=== PATIENT | male | born 1970 | race Caucasian/White ===

== ENCOUNTER 2018-11-03 10:27 | Emergency (ER) | payer SELFPAY ==
[2018-11-03] MEDS ORDERED: Albuterol 0.083% Inhal Sol (2.5 mg/3 mL) UD IH STA ×3 (10:33→12:37)
[2018-11-03] MEDS ORDERED: Magnesium Sulfate 1 gm in D5W 1 GM/100 ML BAG IV ONE (10:34)
[2018-11-03 10:35] VITALS: TEMP 97.7; O2SAT 96
[2018-11-03 11:02] LABS: VENOUS BLOOD GAS PCO2 53 mmHg (40-60); VENOUS BLOOD GAS PO2 33 mm/Hg (30-55); VENOUS BLOOD PH 7.33 (7.32-7.43)
[2018-11-03] MEDS ORDERED: Magnesium Sulfate 1 gm in D5W 2 GM/200 ML BAG IVPB ONE (11:03)
[2018-11-03 11:05] LABS: BASO # 0.1 K/uL (0.0-0.2); BASO % 0.8 % (0.0-2.0); EOS # 1.3 K/uL (0.0-0.7); EOS % 10.3 % (0.0-4.0); HEMOGLOBIN 15.3 g/dL (12.0-18.0); LYMPH # 2.9 K/uL (1.0-4.3); LYMPH % 23.4 % (20.0-40.0); MEAN CELL VOLUME 90.9 fL (80.0-94.0); MEAN CORPUSCULAR HEMOGLOBIN 29.7 pg (27.0-31.0); MEAN CORPUSCULAR HGB CONC 32.7 g/dL (33.0-37.0); MEAN PLATELET VOLUME 7.4 fL (7.2-11.7); MONO # 0.7 K/uL (0.0-0.8); MONO % 5.7 % (0.0-10.0); NEUT # 7.4 K/uL (1.8-7.0); NEUT % 59.8 % (50.0-75.0); RBC 5.13 Mil/uL (4.40-5.90); RED CELL DISTRIBUTION WIDTH 12.8 % (11.5-14.5); WHITE BLOOD COUNT 12.4 K/uL (4.8-10.8)
--- NOTE | 2018-11-03 11:09 | RAD ---
Date of service: 11/03/2018 PROCEDURE: CHEST RADIOGRAPH, 1 VIEW HISTORY: SOB COMPARISON: None available. FINDINGS: LUNGS: Clear. PLEURA: No pneumothorax or pleural fluid seen. CARDIOVASCULAR: There is presence of aortic atherosclerotic calcification on x-ray. Normal. OSSEOUS STRUCTURES: Bilateral shoulder mild arthrosis VISUALIZED UPPER ABDOMEN: Normal. OTHER FINDINGS: None. IMPRESSION: No acute cardiopulmonary pathology appreciated.
[2018-11-03 11:30] LABS: ALB/GLOB RATIO 1.7 (1.0-2.1); ALBUMIN 4.8 g/dL (3.5-5.0); ALT/SGPT 31 U/L (21-72); AST/SGOT 40 U/L (17-59); BLOOD UREA NITROGEN 10 mg/dL (9-20); CALCIUM 9.1 mg/dl (8.6-10.4); GFR NON-AFRICAN AMERICAN > 60
[2018-11-03] MEDS ORDERED: Albuterol-Ipratrop 3 mg / 0.5 (3 ml) UD INH STA (11:37)
[2018-11-03 11:42] LABS: B-TYPE NATRIURETIC PEPTIDE 42.1 pg/mL (0-450)
[2018-11-03] MEDS ORDERED: Albuterol 0.083% Inhal Sol (2.5 mg/3 mL) UD ONE (12:30)
[2018-11-03] MEDS ORDERED: Albuterol-Ipratrop 3 mg / 0.5 (3 ml) UD ONE (12:30)
--- NOTE | 2018-11-03 13:39 | C.PDOC ---
History Of Present Illness 48 y/o male presents to the ED complaining of SOB since yesterday. Patient reports he was diagnosed with asthma after a bout of pneumonia in the fall. States he has had worsening SOB since yesterday morning. He tried taking nebulizers and using his pump at home with minimal relief. Otherwise he denies any fever, chills, chest pain, back pain, nausea, vomiting, numbness, or weakness. Time Seen by Provider: 11/03/18 10:32 Chief Complaint (Nursing): Shortness Of Breath History Per: Patient History/Exam Limitations: no limitations Onset/Duration Of Symptoms: Days (2) Current Symptoms Are (Timing): Still Present Current Respiratory Medications: See Home Med List Past Medical History Reviewed: Historical Data, Nursing Documentation, Vital Signs Vital Signs: Last Vital Signs Temp 97.7 F 11/03/18 10:31 Pulse 117 H 11/03/18 10:31 Resp 25 H 11/03/18 10:31 BP 137/73 11/03/18 10:31 Pulse Ox 96 11/03/18 10:36 - Medical History PMH: Asthma (after dx with pneumonia last 2018) Family History: States: Unknown Family Hx - Social History Hx Tobacco Use: No Hx Alcohol Use: No Hx Substance Use: No - Immunization History Hx Tetanus Toxoid Vaccination: No Hx Influenza Vaccination: No Hx Pneumococcal Vaccination: No Review Of Systems Constitutional: Negative for: Fever, Chills ENT: Negative for: Nose Discharge, Nose Congestion Cardiovascular: Negative for: Chest Pain Respiratory: Positive for: Shortness of Breath, Wheezing Gastrointestinal: Negative for: Vomiting, Abdominal Pain, Diarrhea Musculoskeletal: Negative for: Back Pain Skin: Negative for: Rash Neurological: Negative for: Weakness, Numbness, Dizziness Physical Exam - Physical Exam Appears: Non-toxic, Other (Audibly wheezing, speaking in short phrases) Skin: Warm, Dry, No Rash Head: Atraumatic, Normacephalic Eye(s): bilateral: Normal Inspection, PERRL, EOMI Neck: Normal ROM Chest: Symmetrical Cardiovascular: Rhythm Regular, No Murmur Respiratory: No Accessory Muscle Use, No Rhonchi, Wheezing (diffusely) Gastrointestinal/Abdominal: Soft, No Tenderness, No Distention Extremity: Bilateral: Atraumatic, Normal Color And Temperature Neurological/Psych: Oriented x3 ED Course And Treatment - Laboratory Results Result Diagrams: 11/03/18 11:01 11/03/18 11:01 Lab Results: pO2 33 mm/Hg (30-55) 11/03/18 10:58 VBG pH 7.33 (7.32-7.43) 11/03/18 10:58 VBG pCO2 53 mmHg (40-60) 11/03/18 10:58 VBG HCO3 24.6 mmol/L 11/03/18 10:58 VBG Total CO2 29.5 mmol/L (22-28) H 11/03/18 10:58 VBG O2 Sat (Calc) 68.2 % (40-65) H 11/03/18 10:58 VBG Base Excess 1.0 mmol/L (0.0-2.0) 11/03/18 10:58 VBG Potassium 3.8 mmol/L (3.6-5.2) 11/03/18 10:58 Sodium 139.0 mmol/l (132-148) 11/03/18 10:58 Chloride 105.0 mmol/L (98-107) 11/03/18 10:58 Glucose 132 mg/dl (75-110) H 11/03/18 10:58 Lactate 2.3 mmol/L (0.7-2.1) H 11/03/18 10:58 Troponin I < 0.0120 ng/mL (0.00-0.120) 11/03/18 11:01 NT-Pro-B Natriuret Pep 42.1 pg/mL (0-450) 11/03/18 11:01 Total Bilirubin 0.9 mg/dL (0.2-1.3) 11/03/18 11:01 AST 40 U/L (17-59) 11/03/18 11:01 ALT 31 U/L (21-72) 11/03/18 11:01 Alkaline Phosphatase 92 U/L (38-126) 11/03/18 11:01 Total Protein 7.7 g/dL (6.3-8.3) 11/03/18 11:01 Albumin 4.8 g/dL (3.5-5.0) 11/03/18 11:01 Globulin 2.8 gm/dL (2.2-3.9) 11/03/18 11:01 Albumin/Globulin Ratio 1.7 (1.0-2.1) 11/03/18 11:01 O2 Sat by Pulse Oximetry: 96 (RA) Pulse Ox Interpretation: Normal - Other Rad CXR X-Ray: Read By Radiologist Interpretation: Accession No. : [id number]. Patient Name / ID : SAROJ THAKKAR P / [id number]. Exam Date : 11/03/2018 10:37:51 ( Approved ). Study Comment : Sex / Age : M / 48Y. Creator : preston antoine. Dictator : Melba Rendon. Commutator Inspector : Triage Assistant : Melba Rendon. Approver2 : Report Date : 11/03/2018 10:41:26. My Comment : . Date of service: 11/03/2018. PROCEDURE: CHEST RADIOGRAPH, 1 VIEW. HISTORY: SOB. COMPARISON: None available. FINDINGS: LUNGS: Clear. PLEURA: No pneumothorax or pleural fluid seen. CARDIOVASCULAR: There is presence of aortic atherosclerotic calcification on x-ray. Normal. OSSEOUS STRUCTURES: Bilateral shoulder mild arthrosis. VISUALIZED UPPER ABDOMEN: Normal. OTHER FINDINGS: None. IMPRESSION: No acute cardiopulmonary pathology appreciated. Progress Note: Blood work, VBG, EKG, CXR ordered. Administered 1gm IV mag sulfate and albuterol nebulizers x2. 11:37am Patient treated with duoneb nebulizer and SC terbutaline. Patient still appears SOB and is audibly wheezing. 12:37pm Third albuterol neb given. Patient reports improvement in symptoms however continues to look short of breath, speaking in short phrases. Advised patient of the need to stay for observation and further treatment. Patient is refusing to stay, chooses to sign AMA. Risks and benefits were discussed in detail, including possible and disability. Reevaluation Time: 12:45 Reassessment Condition: Unchanged Against Medical Advice - AMA Patient Left Against Medical Advice: The patient declines admission to the hospital and wishes to leave the Emergency Department. This action is against my medical advice. This decision was made wi th informed refusal. The patient was told that admission to the hospital is necessary. Explanation of the reasons why were discussed. The risks of leaving were explained to the patient and include, but are not limited to, worsening of known or currently unknown conditions, permanent disability and from undiagnosed or untreated conditions. The patient has the capacity to make this informed decision and understands my explanation of the current medical problem and risks of leaving. The patient voluntarily accepts these risks and signed an AMA form documenting our conversation. The patient was given the opportunity to ask questions and reconsider. The patient was encouraged to return to the Emergency Department at any time for further care. Disposition Counseled Patient/Family Regarding: Diagnosis, Need For Followup - Disposition Referrals: Chiki Palomares MD [Staff Provider] - Disposition: AGAINST MEDICAL ADVICE Disposition Time: 13:10 Condition: STABLE Additional Instructions: FOLLOW UP WITH YOUR DOCTOR IN 1-2 DAYS USE MEDICATIONS NEEDED RETURN TO ER IF SYMPTOMS WORSEN Prescriptions: Albuterol 0.5% [Albuterol 0.5% Inhal Ly (2.5 mg/0.5 ml) UD] 2.5 mg IH Q6 PRN #1 bottle PRN Reason: Wheezing Albuterol HFA [Ventolin HFA 90 mcg/actuation (8 g)] 0.09 mg IH Q4 PRN #1 puff PRN Reason: Wheezing Benzonatate [Tessalon Perles] 100 mg PO BID PRN #15 sgl PRN Reason: Cough Methylprednisolone [Medrol Dose Pack (21 tabs)] 4 mg PO DAILY #21 mg Instructions: Asthma, Adult (DC), Leaving Against Medical Advice Forms: (AMA) Informed Refusal, [employer] (Tajik) Print Language: ICELANDIC - Clinical Impression Clinical Impression: Asthma exacerbation, Left against medical advice - Scribe Statement The provider has reviewed the documentation as recorded by the Skylar Sims Provider Attestation: All medical record entries made by the Rickibsonya were at my direction and personally dictated by me. I have reviewed the chart and agree that the record accurately reflects my personal performance of the history, physical exam, medical decision making, and the department course for this patient. I have also personally directed, reviewed, and agree with the discharge instructions and disposition.
[2018-11-03 13:40] VITALS: BP 111/65; PULSE 122; RESP 16
--- NOTE | 2018-11-04 12:13 | CARD ---
APPROVED REPORT Date of service: 11/03/2018 EKG Measurement Heart [id number] <Conclusion> Sinus tachycardia Otherwise normal ECG
== END 2018-11-03 14:25 | disposition left against medical advice (07) ==
LOC: C.ER 10:27
DX: J45.901 Unspecified asthma with (acute) exacerbation (principal)
CPT/HCPCS: 71045; 80053; 82803; 83880; 84484; 85025; 93005; 96372; 99284; J3105; J3475

== ENCOUNTER 2018-11-03 14:49 | Inpatient (IN) | payer SELFPAY ==
--- NOTE | 2018-11-03 15:22 | C.PDOC ---
History Of Present Illness 48 y/o male returns to the ED for worsening SOB after leaving AMA 1 hour ago. States he had severe recurrence immediately after getting outside and could not make it past the hospital grounds. Patient reports SOB is worse than when he was sitting in bed and decided to leave AMA. Of note patient was diagnosed with asthma after diagnosis or viral URI and bilateral pneumonia in June 2018. He notes the pneumonia resolved after treatment. Patient then had recurrent wheezing/SOB about 1 month ago, was diagnosed with "allergy" and discharged home with a pump and steroid course, after which symptoms resolved. The SOB and wheezing then recurred yesterday. Patient was seen earlier today, received multiple nebulizers, terbutaline, and mag sulfate. He signed out AMA, refusing admission, but now returns. Patient states in the past he was worked up for PE and was "negative." Denies hx of smoking or chronic industrial exposures. Time Seen by Provider: 11/03/18 14:51 Chief Complaint (Nursing): Respiratory Distress History Per: Patient History/Exam Limitations: no limitations Onset/Duration Of Symptoms: Worse Since (leaving 1 hour ago) Associated Symptoms: Dyspnea Past Medical History Reviewed: Historical Data, Nursing Documentation, Vital Signs Vital Signs: Last Vital Signs Temp 98.8 F 11/03/18 15:09 Pulse 121 H 11/03/18 15:09 Resp 20 11/03/18 15:09 BP 131/72 11/03/18 15:09 Pulse Ox 97 11/03/18 15:09 - Medical History PMH: Asthma (after dx with pneumonia last 2017) Family History: States: Unknown Family Hx - Social History Hx Tobacco Use: No Hx Alcohol Use: No Hx Substance Use: No - Immunization History Hx Tetanus Toxoid Vaccination: No Hx Influenza Vaccination: No Hx Pneumococcal Vaccination: No Review Of Systems Except As Marked, All Systems Reviewed And Found Negative. Constitutional: Negative for: Fever, Chills ENT: Negative for: Nose Congestion Cardiovascular: Negative for: Chest Pain Respiratory: Positive for: Cough, Shortness of Breath, Wheezing. Negative for: Hemoptysis, Sputum Gastrointestinal: Negative for: Vomiting, Diarrhea Musculoskeletal: Negative for: Back Pain Neurological: Negative for: Weakness, Numbness, Dizziness Physical Exam - Physical Exam Appears: Non-toxic, In Acute Distress (mild) Skin: Warm, Dry, No Rash Head: Atraumatic, Normacephalic Eye(s): bilateral: Normal Inspection, PERRL, EOMI Neck: Normal ROM Chest: Symmetrical Cardiovascular: Rhythm Regular, Other (Tachycardic) Respiratory: Wheezing (bilateral expiratory wheezing), Other (+ abdominal retractions, patient speaking in 4-5 word sentences) Gastrointestinal/Abdominal: Soft, No Tenderness, No Distention Extremity: Bilateral: Atraumatic, Normal Color And Temperature Pulses: Left Radial: Normal, Right Radial: Normal Neurological/Psych: Oriented x3, Normal Cranial Nerves ED Course And Treatment O2 Sat by Pulse Oximetry: 97 (RA) Pulse Ox Interpretation: Normal Progress - Re-Evaluation Re-evaluation Note: 11/03/18 15:31 D/W DR LASSITER AWARE OF ER FINDINGS WILL ADMIT PENDING CALLBACK DR LITTLE FOR ICU EVAL 11/03/18 15:47 S/P EVAL DR LITTLE CLEARED FOR TELE ADMISSION - Data Reviewed Data Reviewed: Old records - Critical Care Citical Care: Excluding Proc Time Critical Care Time: 60 minutes Medical Decision Making Medical Decision Making: Reviewed medications from earlier visit, patient received: Tessalon at 14:09 Mag at 10:30 Terbutaline at 11:40 Multiple nebs, last at 12:40 Initial Plan: Will re-admit patient Disposition Counseled Patient/Family Regarding: Diagnosis - Disposition Disposition: HOSPITALIZED Disposition Time: 15:34 Condition: SERIOUS Forms: [facility] (Irish) - POA Present On Arrival: None - Clinical Impression Clinical Impression: Exacerbation of asthma, Hypoxia - Scribe Statement The provider has reviewed the documentation as recorded by the Skylar Sims Provider Attestation: All medical record entries made by the Skylar were at my direction and personally dictated by me. I have reviewed the chart and agree that the record accurately reflects my personal performance of the history, physical exam, medical decision making, and the department course for this patient. I have also personally directed, reviewed, and agree with the discharge instructions and disposition.
[2018-11-03] MEDS ORDERED: Albuterol 0.083% Inhal Sol (2.5 mg/3 mL) UD INH STA (15:37)
--- NOTE | 2018-11-03 15:40 | CP.PCM.HP ---
Past Patient History - Infectious Disease Hx of Infectious Diseases: None - Past Social History Smoking Status: Never Smoked - PULMONARY Hx Asthma: Yes (after dx with pneumonia last 2017) - PSYCHIATRIC Hx Substance Use: No - SURGICAL HISTORY Other/Comment: BL ear- [place] to left ear - ANESTHESIA Hx Anesthesia: Yes Hx Anesthesia Reactions: No Hx Malignant Hyperthermia: No Meds Allergies/Adverse Reactions: Allergies Allergy/AdvReac Type Severity Reaction Status Date / Time No Known Allergies Allergy Verified 11/03/18 10:31 Results - Vital Signs Recent Vital Signs: Last Vital Signs Temp 98.8 F 11/03/18 15:09 Pulse 121 H 11/03/18 15:09 Resp 20 11/03/18 15:09 BP 131/72 11/03/18 15:09 Pulse Ox 97 11/03/18 15:40
--- NOTE | 2018-11-03 15:47 | CP.PCM.HP ---
<Cale Hoyt - Last Filed: 11/03/18 18:27> History of Present Illness - History of Present Illness History of Present Illness: PGY1 Medicine H and P for Dr. Hernandez This is a 48 year old male with PMH of pneumonia, post-pneumonia asthma who presents with difficulty breathing and wheezing worsening over the past 4 days. He states that he was unable to walk to the bathroom from his bedroom without becoming short of breath yesterday. In the morning his difficultly breathing exacerbated which prompted him to be admitted to the ED. He notes constant wheezing during the episode but denies pleuritic chest pain, or diaphoresis. He used his nebulizer 5 times yesterday without much relief. Symptoms are worse at night, but occur during the day as well. He denies fever, chills, chest pain, headache, dizziness, numbness or tingling, abdominal pain, n/v/d, rash. He endorses leg swelling that has been going on for more than 1 year, and is worse at night. He attributes the swelling to wearing tight socks. His first episode of similar symptoms was in June 2018 where he was coughing up clear sputum profusely while working in [employer] he was admitte dto the hospital and stayed for one night due to "double pneumonia." He was discharged with antibiotics, name unknown, and completed treatment. His second episode was seen in [place] (he lives in [place]) 3 weeks ago for the same symptoms, which improved with nebulizers in the ER. Pt reports it was very cold when the symptoms began. At that time he received a chest CTA due to his frequent travel history, but pt states it was negative for a PE. He was discharged from the ED with a nebulizer and prednisone. Pt has never seen a optical dispenser or worked up for asthma in the past, only ER visits for sob. Pt was seen in the ED earlier this morning, but left AMA due to air bnb problem. He returned for further workup, labs are from prior visit this morning. 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 Pt travels frequently (100 airplane/car trips per year as per pt). Denies moking history, drug use. Occasional alcohol use. Meds: Nebulizer, Albuterol Allx: NKDA Present on Admission - Present on Admission Any Indicators Present on Admission: No Review of Systems - Review of Systems All systems: reviewed and no additional remarkable complaints except (as per HPI) Past Patient History - Infectious Disease Hx of Infectious Diseases: None - Past Social History Smoking Status: Never Smoked - PULMONARY Hx Asthma: Yes (after dx with pneumonia last 2017) - PSYCHIATRIC Hx Substance Use: No - SURGICAL HISTORY Other/Comment: BL ear- [place] to left ear - ANESTHESIA Hx Anesthesia: Yes Hx Anesthesia Reactions: No Hx Malignant Hyperthermia: No Meds Allergies/Adverse Reactions: Allergies Allergy/AdvReac Type Severity Reaction Status Date / Time No Known Allergies Allergy Verified 11/03/18 10:31 Physical Exam - Constitutional Appears: Non-toxic, No Acute Distress - Head Exam Head Exam: ATRAUMATIC, NORMAL INSPECTION - Eye Exam Eye Exam: EOMI, Normal appearance, PERRL - ENT Exam ENT Exam: Mucous Membranes Moist. absent: Normal Oropharynx (erythema, questionable exudate in the right posterior pharynx) Additional comments: (+) post op changes to bilateral ear canals, healed, no signs of infection - Neck Exam Neck exam: Positive for: Normal Inspection. Negative for: Lymphadenopathy - Respiratory Exam Respiratory Exam: Wheezes (inspiratory). absent: Accessory Muscle Use, Decreased Breath Sounds, Rales, Rhonchi, Respiratory Distress, Stridor - Cardiovascular Exam Cardiovascular Exam: Tachycardia, +S1, +S2. absent: Diastolic murmur, JVD, Systolic Murmur - GI/Abdominal Exam GI & Abdominal Exam: Normal Bowel Sounds, Soft. absent: Distended, Firm, G uarding, Rebound, Rigid, Tenderness - Extremities Exam Extremities exam: Positive for: normal capillary refill, pedal edema (trace edema bilaterally, left worse than right), pedal pulses present. Negative for: calf tenderness, tenderness - Back Exam Back exam: NORMAL INSPECTION - Neurological Exam Neurological exam: Alert, Oriented x3 - Psychiatric Exam Psychiatric exam: Normal Affect, Normal Mood - Skin Skin Exam: Dry, Normal Color, Warm Results - Vital Signs Recent Vital Signs: Last Vital Signs Temp 98.8 F 11/03/18 15:09 Pulse 121 H 11/03/18 15:09 Resp 20 11/03/18 15:09 BP 131/72 11/03/18 15:09 Pulse Ox 97 11/03/18 15:42 Assessment & Plan - Assessment and Plan (Free Text) Assessment: This is a 48 year old male with PMH of pneumonia, post-pneumonia asthma who presents with difficulty breathing and wheezing worsening over the past 4 days. Plan: Dyspnea with tachycardia Pt received multiple duoneb treatments, tessalon perles, magnesium sulfate 2g IV PB, terbutaline 0.5 mg SC x2 in the ED. He was put on high flow o2 as well. Leukocytosis of 12.4, possible due to outpatient CCS treatment pt afebrile, no left shift, tachycardic at 120s Eosinophil auto and percentage are elevated CXR shows no acute cardiopulmonary disease EKG shows ST, no acute STTW changes F/u Ddimer Will do chest CTA if positive due to increased risk of thrombosis due to dave quent travel Duonebs q4 Montelukast 10 mg PO QHS Breo daily Claritin 10 mg PO daily Solumedrol 40 mg IVP q8 Benzonatate 100 mg pO TID F/u strep pneumo, mycoplasma igm, legionella urine Ag, influenza A/B, rapid strep swab, sputum culture, urine culture, blood culture, alpha one antitrypsin, Serum IgE F/u ABG F/u UDS Lower extremity swelling F/u bilateral lower extremity dopplers PPx: No GI ppx indicated at this time Heparin 5000 units SC q12 HHD Case discussed with Dr. Hernandez <Uma Hernandez V - Last Filed: 11/04/18 09:07> Results - Vital Signs Recent Vital Signs: Last Vital Signs Temp 97.6 F 11/04/18 08:00 Pulse 67 11/04/18 08:00 Resp 20 11/04/18 08:00 BP 119/69 11/04/18 08:00 Pulse Ox 96 11/04/18 08:00 - Labs Result Diagrams: 11/04/18 07:00 11/04/18 07:00 Labs: Laboratory Results - last 24 hr 11/03/18 11/03/18 11/03/18 18:15 20:55 20:55 WBC RBC Hgb Hct MCV MCH MCHC RDW Plt Count MPV Neut % (Auto) Lymph % (Auto) [place] % (Auto) Eos % (Auto) Baso % (Auto) Neut # (Auto) Lymph # (Auto) [place] # (Auto) Eos # (Auto) Baso # (Auto) Neutrophils % (Manual) Band Neutrophils % Lymphocytes % (Manual) Monocytes % (Manual) Platelet Estimate D-Dimer, Quantitative 327 H Sodium Potassium Chloride Carbon Dioxide Anion Gap BUN Creatinine Est GFR ( Amer) Est GFR (Non-Af Amer) Random Glucose Calcium Phosphorus Magnesium Total Bilirubin AST ALT Alkaline Phosphatase Total Protein Albumin Globulin Albumin/Globulin Ratio Urine Opiates Screen Negative Urine Methadone Screen Negative Ur Barbiturates Screen Negative Ur Phencyclidine Scrn Negative Ur Amphetamines Screen Negative U Benzodiazepines Scrn Negative U Oth Cocaine Metabols Negative U Cannabinoids Screen Negative Influenza Typ A,B (EIA) Ur L.pneumophila Ag Negative 11/03/18 11/04/18 11/04/18 20:55 07:00 07:00 WBC 18.2 H RBC 4.80 Hgb 14.4 Hct 43.5 MCV 90.7 MCH 29.9 MCHC 33.0 RDW 13.1 Plt Count 352 MPV 7.5 Neut % (Auto) 88.5 H Lymph % (Auto) 7.3 L [place] % (Auto) 4.2 Eos % (Auto) 0.0 Baso % (Auto) 0.0 Neut # (Auto) 16.0 H Lymph # (Auto) 1.3 [place] # (Auto) 0.8 Eos # (Auto) 0.0 Baso # (Auto) 0.0 Neutrophils % (Manual) 87 H Band Neutrophils % 2 Lymphocytes % (Manual) 8 L Monocytes % (Manual) 3 Platelet Estimate Normal D-Dimer, Quantitative Sodium 137 Potassium 4.6 Chloride 101 Carbon Dioxide 26 Anion Gap 14 BUN 17 Creatinine 0.7 L Est GFR ( Amer) > 60 Est GFR (Non-Af Amer) > 60 Random Glucose 157 H Calcium 9.5 Phosphorus 4.4 Magnesium 2.5 H Total Bilirubin 0.8 AST 29 ALT 26 Alkaline Phosphatase 88 Total Protein 7.1 Albumin 4.6 Globulin 2.5 Albumin/Globulin Ratio 1.8 Urine Opiates Screen Urine Methadone Screen Ur Barbiturates Screen Ur Phencyclidine Scrn Ur Amphetamines Screen U Benzodiazepines Scrn U Oth Cocaine Metabols U Cannabinoids Screen Influenza Typ A,B (EIA) Negative for flu a/b Ur L.pneumophila Ag Attending/Attestation - Attestation I have personally seen and examined this patient.: Yes I have fully participated in the care of the patient.: Yes I have reviewed all pertinent clinical information: Yes Notes (Text): This is a late computer entry for November 03, 2018. Patient seen, examined, case discussed with medical office secretary. Patient seen in bed 3 in the emergency room. Patient initially came in from the emergency room secondary to 1 loss of his personal items from his air BMB supplement into because of potential traffic ticket and/or removal of his truck from outside the hospital. Patient noted when he did AMA that he has significant dyspnea on exertion can barely handle walking 1 block which prompted him to come back definitely. 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 He does report he uses his nebulizer was about 2 times a day and then last night he noted for at least 5 times but did not improve his breathing. Patient also noted that a believe in June 2018 while he was he was in [place] he was diagnosed with bilateral pneumonias. And he also reports as of 3 weeks ago he did well on his ED visit he was ruled out for PE. At bedside he does feel short of breath he is on high flow oxygen as well as he is persistently tachycardic to about 115 is 120 patient has received multiple nebulizer treatments as well as magnesium noted in his first EMR record. Patient does report he does have insurance since discharge [facility] 1 month ago reports that there is adenopathy however there is some issue with his information being written bonk somewhere Patient has not been formally diagnosed with asthma he has not had any outpatient Yasmin function tests by her optical dispenser as well as no history of childhood asthma to the best of his knowledge. Patient also notes that his girlfriend is very involved in his care he is an ER trained nurse who is been helping him more or less understand the medications that he has been getting from his prior ER and hospitalization visits. Assessment/plan 1. Dyspnea * Likely secondary to severe asthma worsened by cold weather * Pt received multiple duoneb treatments, tessalon perles, magnesium sulfate 2g IVPB, terbutaline 0.5 mg SC x2 in the ED. He was put on high flow o2 as well.Leukocytosis of 12.4, possible due to outpatient CCS treatment * pt afebrile, no left shift, tachycardic at 120s * Eosinophil auto and percentage are elevated likely allergic component * CXR shows no acute cardiopulmonary disease * EKG shows ST, no acute STTW changes * F/u Ddimer * Will do chest CTA if positive due to increased risk of thrombosis due to frequent travel * Per well's criteria he is considered high risk given his travel mobility and noted cramping before * Duonebs q4 * Montelukast 10 mg PO QHS * Breo daily * Claritin 10 mg PO daily * Solumedrol 40 mg IVP q8 * Benzonatate 100 mg pO TID * F/u strep pneumo, mycoplasma igm, legionella urine Ag, influenza A/B, rapid strep swab, sputum culture, urine culture, blood culture, alpha one antitrypsin, Serum IgE * Patient had initially refusing ABG I did indicate to him that he will let us know both oxygenation as well as CO2 retention and then did indicate to him that it would be necessary * F/u UDS 2. Lower extremity swelling * F/u bilateral lower extremity dopplers to rule out DVT does have significant risk factors 3. PPx: * No GI ppx indicated at this time * Heparin 5000 units SC q12 * HHD
[2018-11-03] MEDS ORDERED: Albuterol 0.083% Inhal Sol (2.5 mg/3 mL) UD ONE (15:48)
--- NOTE | 2018-11-03 16:16 | CP.PCM.CON ---
Past Patient History - Infectious Disease Hx of Infectious Diseases: None - Past Social History Smoking Status: Never Smoked - PULMONARY Hx Asthma: Yes (after dx with pneumonia last 2017) - PSYCHIATRIC Hx Substance Use: No - SURGICAL HISTORY Other/Comment: BL ear- [place] to left ear - ANESTHESIA Hx Anesthesia: Yes Hx Anesthesia Reactions: No Hx Malignant Hyperthermia: No Meds Allergies/Adverse Reactions: Allergies Allergy/AdvReac Type Severity Reaction Status Date / Time No Known Allergies Allergy Verified 11/03/18 10:31 Results - Vital Signs Recent Vital Signs: Last Vital Signs Temp 98.8 F 11/03/18 15:09 Pulse 121 H 11/03/18 15:09 Resp 20 11/03/18 15:51 BP 131/72 11/03/18 15:09 Pulse Ox 97 11/03/18 15:48
[2018-11-03] MEDS ORDERED: Iohexol 300 100 ML IJ ONE (19:26)
[2018-11-03] MEDS: Albuterol-Ipratrop 3 mg / 0.5 (3 ml) UD INH SCH (20:40)
[2018-11-03 21:16] LABS: BARBITURATES, UR NEGATIVE (NEGATIVE); BENZODIAZEPINES, UR NEGATIVE (NEGATIVE); OPIATES, UR NEGATIVE (NEGATIVE); PHENCYCLIDINE, UR NEGATIVE (NEGATIVE)
[2018-11-03] MEDS: MethylPREDNISolone 40 mg Vial IVP SCH (21:31)
[2018-11-03] MEDS ORDERED: MethylPREDNISolone 40 mg Vial IVP SCH ×3 (22:00)
[2018-11-04] MEDS: Albuterol-Ipratrop 3 mg / 0.5 (3 ml) UD INH SCH ×3 (00:55→07:20)
[2018-11-04] MEDS: MethylPREDNISolone 40 mg Vial IVP SCH (06:05)
[2018-11-04 07:21] LABS: HEMOGLOBIN 14.4 g/dL (12.0-18.0); LYMPH # 1.3 K/uL (1.0-4.3); LYMPH % 7.3 % (20.0-40.0); MEAN CELL VOLUME 90.7 fL (80.0-94.0); MEAN CORPUSCULAR HEMOGLOBIN 29.9 pg (27.0-31.0); MEAN PLATELET VOLUME 7.5 fL (7.2-11.7); MONO # 0.8 K/uL (0.0-0.8); MONO % 4.2 % (0.0-10.0); NEUT % 88.5 % (50.0-75.0); PLATELET COUNT 352 K/uL (130-400); RED CELL DISTRIBUTION WIDTH 13.1 % (11.5-14.5); WHITE BLOOD COUNT 18.2 K/uL (4.8-10.8)
[2018-11-04 07:33] LABS: ALB/GLOB RATIO 1.8 (1.0-2.1); ALBUMIN 4.6 g/dL (3.5-5.0); ALT/SGPT 26 U/L (21-72); AST/SGOT 29 U/L (17-59); BLOOD UREA NITROGEN 17 mg/dL (9-20); CALCIUM 9.5 mg/dl (8.6-10.4); GFR NON-AFRICAN AMERICAN > 60
[2018-11-04] MEDS ORDERED: Fluticasone-Vilanterol 100/25mcg Diskus INH SCH (08:00)
[2018-11-04 08:21] VITALS: BP 119/69; RESP 20; TEMP 97.6
[2018-11-04 08:39] LABS: BANDS 2 % (0-2); LYMPHOCYTE 8 % (20-40); MONOCYTE 3 % (0-10); NEUTROPHIL 87 % (50-75); PLATELET ESTIMATE NORMAL (NORMAL); TOTAL CELLS COUNTED 100
--- NOTE | 2018-11-04 09:34 | CT ---
Date of service: 11/03/2018 PROCEDURE: CT Chest with contrast (Pulmonary Angiogram) HISTORY: r/o PE COMPARISON: Correlation made with chest radiograph 11/03/2018. The the TECHNIQUE: Axial computed tomography images were obtained of the chest in the pulmonary arterial phase of enhancement. Coronal and sagittal reformatted images were created and reviewed. Intravenous contrast dose: Radiation dose: Total exam DLP = 638.13 mGy-cm. This CT exam was performed using one or more of the following dose reduction techniques: Automated exposure control, adjustment of the mA and/or kV according to patient size, and/or use of iterative reconstruction technique. FINDINGS: The study is somewhat limited due to suboptimal opacification of the pulmonary arteries. PULMONARY ARTERIES: Unremarkable. No pulmonary embolism. AORTA: No acute findings. No thoracic aortic aneurysm. No aortic atherosclerotic calcification or mural plaque present. LUNGS: The lung avila are clear without focal consolidation. There is a small approximately 2.5 mm nodular density lateral aspect right upper lobe near the pleural surface best seen on axial series 4, image 40. Additionally, there is a 4.4 mm rounded ground-glass/translucent opacity seen in the left upper lobe also seen on axial series 4, image number 31... There appears to be some minimal linear scarring seen in the middle lobe and lingular regions.. Followup the CT scan in 6 months could be performed to assess stability. PLEURAL SPACES: No evidence of pleural effusion or pneumothorax HEART: Heart size within range of normal. No significant pericardial. LYMPH NODES: There are few small nonspecific mediastinal lymph nodes. No significant hilar the adenopathy.. The trachea midline and patent with no large central endoluminal lesions.. There is a small hiatal hernia. BONES, CHEST WALL: Minor multilevel degenerative spondylosis of the thoracic spine. No acute compression fractures no retropulsed fragments. OTHER FINDINGS: Minor changes of bilateral gynecomastia. IMPRESSION: Limited study due to suboptimal opacification of the pulmonary arteries. No definitive evidence of acute central pulmonary embolus. Slightly there are small upper lobe nodules left-sided which is is somewhat translucent in appearance. Followup the CT scan in 6 months could be performed to assess stability.
[2018-11-04] MEDS ORDERED: guaiFENesin 600 mg ER Tab PO SCH (10:00)
[2018-11-04 13:14] VITALS: PULSE 110; O2SAT 95
--- NOTE | 2018-11-04 13:32 | CP.PCM.CON ---
History of Present Illness - History of Present Illness History of Present Illness: narayan is a 48 year old male with a PMHx of asthma who presented to the ED with a 4 day history of wheezing with exertion. Consulted to evaluate asthma exacerbation. Patient was seen and examined at bedside Patient states his is still short of breath and has some chest pain He has had two episodes in the past and went to ER on both events. He has never seen a surface water manager or had this issue worked up. Patient was tachy on admission with shortness of breath so PE must be ruled out Afebrile with saturations at 96% on nasal cannula Denies: Nausea, vomiting, fever, chills PMH: Asthma, post-pneumonia asthma, bilateral cholesteatoma 15 years ago which became infected PSH: Bilateral mastoidectomy due to cholesteatomas Allergies: NKDA Social: Social drinker, denies smoking or illicit drug use Meds:as per EMR Physical Exam Gen: AAOx3 Cardio: RRR, no murmurs Pulm: Diffuse wheezing bilaterally Abdomen: soft, nontender A/P Asthma -Continue Duoneb -Continue Breo Ellipta -Continue Mucinex -Continue Solu-Medrol -Continue Singulair -Chest CT 11/04/18: suboptimal opacification of the pulmonary arteries. no evidence of central pulmonary embolus, small upper lobe nodules left sided which is somewhat translucent in appearance. -D-DImer elevated and duplex ultra sound of legs was ordered. Follow up study once read. Past Patient History - Infectious Disease Hx of Infectious Diseases: None - Past Medical History & Family History Past Medical History?: Yes - Past Social History Smoking Status: Never Smoked - CARDIAC Hx Cardiac Disorders: No - PULMONARY Hx Respiratory Disorders: Yes Hx Asthma: Yes (after dx with pneumonia last 2018) Hx Pneumonia: Yes - NEUROLOGICAL Hx Neurological Disorder: No - HEENT Hx HEENT Problems: No - RENAL Hx Chronic Kidney Disease: No - ENDOCRINE/METABOLIC Hx Endocrine Disorders: No - HEMATOLOGICAL/ONCOLOGICAL Hx Blood Disorders: No - INTEGUMENTARY Hx Dermatological Problems: No - MUSCULOSKELETAL/RHEUMATOLOGICAL Hx Musculoskeletal Disorders: No Hx Falls: No - GASTROINTESTINAL Hx Gastrointestinal Disorders: No - GENITOURINARY/GYNECOLOGICAL Hx Genitourinary Disorders: No - PSYCHIATRIC Hx Psychophysiologic Disorder: No Hx Substance Use: No - SURGICAL HISTORY Hx Surgeries: No Other/Comment: BL ear- [place] to left ear - ANESTHESIA Hx Anesthesia: Yes Hx Anesthesia Reactions: No Hx Malignant Hyperthermia: No Meds Allergies/Adverse Reactions: Allergies Allergy/AdvReac Type Severity Reaction Status Date / Time No Known Allergies Allergy Verified 11/03/18 10:31 - Medications Medications: Current Medications Benzonatate (Tessalon Perles) 100 mg PO TID [facility] Last Admin: 11/04/18 09:15 Dose: 100 mg Fluticasone/Vilanterol (Breo Ellipta 100-25 Mcg Inh) 1 puff INH RQD [facility] Last Admin: 11/04/18 07:20 Dose: 1 puff Guaifenesin (Mucinex La) 600 mg PO BID [facility] Last Admin: 11/04/18 09:15 Dose: 600 mg Heparin Sodium (Porcine) (Heparin) 5,000 units SC Q12 [facility] Last Admin: 11/04/18 09:15 Dose: 5,000 units Ipratropium [place] (Atrovent) 0.5 mg IH RQ6 [facility] Loratadine (Claritin) 10 mg PO DAILY [facility] Last Admin: 11/04/18 09:15 Dose: 10 mg Methylprednisolone (Solu-Medrol) 40 mg IVP Q12 [facility] Montelukast Sodium (Singulair) 10 mg PO HS [facility] Last Admin: 11/03/18 21:31 Dose: 10 mg Results - Vital Signs Recent Vital Signs: Last Vital Signs Temp 97.6 F 11/04/18 08:00 Pulse 110 H 11/04/18 13:00 Resp 20 11/04/18 09:38 BP 119/69 11/04/18 08:00 Pulse Ox 95 11/04/18 13:00 - Labs Result Diagrams: 11/04/18 07:00 11/04/18 07:00 Labs: Laboratory Results - last 24 hr 11/03/18 11/03/18 11/03/18 18:15 20:55 20:55 WBC RBC Hgb Hct MCV MCH MCHC RDW Plt Count MPV Neut % (Auto) Lymph % (Auto) [place] % (Auto) Eos % (Auto) Baso % (Auto) Neut # (Auto) Lymph # (Auto) [place] # (Auto) Eos # (Auto) Baso # (Auto) Neutrophils % (Manual) Band Neutrophils % Lymphocytes % (Manual) Monocytes % (Manual) Platelet Estimate D-Dimer, Quantitative 327 H Sodium Potassium Chloride Carbon Dioxide Anion Gap BUN Creatinine Est GFR ( Amer) Est GFR (Non-Af Amer) Random Glucose Calcium Phosphorus Magnesium Total Bilirubin AST ALT Alkaline Phosphatase Total Protein Albumin Globulin Albumin/Globulin Ratio Urine Opiates Screen Negative Urine Methadone Screen Negative Ur Barbiturates Screen Negative Ur Phencyclidine Scrn Negative Ur Amphetamines Screen Negative U Benzodiazepines Scrn Negative U Oth Cocaine Metabols Negative U Cannabinoids Screen Negative HIV 1&2 Antibody Screen Influenza Typ A,B (EIA) Ur L.pneumophila Ag Negative 11/03/18 11/04/18 11/04/18 20:55 07:00 07:00 WBC 18.2 H RBC 4.80 Hgb 14.4 Hct 43.5 MCV 90.7 MCH 29.9 MCHC 33.0 RDW 13.1 Plt Count 352 MPV 7.5 Neut % (Auto) 88.5 H Lymph % (Auto) 7.3 L [place] % (Auto) 4.2 Eos % (Auto) 0.0 Baso % (Auto) 0.0 Neut # (Auto) 16.0 H Lymph # (Auto) 1.3 [place] # (Auto) 0.8 Eos # (Auto) 0.0 Baso # (Auto) 0.0 Neutrophils % (Manual) 87 H Band Neutrophils % 2 Lymphocytes % (Manual) 8 L Monocytes % (Manual) 3 Platelet Estimate Normal D-Dimer, Quantitative Sodium 137 Potassium 4.6 Chloride 101 Carbon Dioxide 26 Anion Gap 14 BUN 17 Creatinine 0.7 L Est GFR ( Amer) > 60 Est GFR (Non-Af Amer) > 60 Random Glucose 157 H Calcium 9.5 Phosphorus 4.4 Magnesium 2.5 H Total Bilirubin 0.8 AST 29 ALT 26 Alkaline Phosphatase 88 Total Protein 7.1 Albumin 4.6 Globulin 2.5 Albumin/Globulin Ratio 1.8 Urine Opiates Screen Urine Methadone Screen Ur Barbiturates Screen Ur Phencyclidine Scrn Ur Amphetamines Screen U Benzodiazepines Scrn U Oth Cocaine Metabols U Cannabinoids Screen HIV 1&2 Antibody Screen Influenza Typ A,B (EIA) Negative for flu a/b Ur L.pneumophila Ag 11/04/18 09:27 WBC RBC Hgb Hct MCV MCH MCHC RDW Plt Count MPV Neut % (Auto) Lymph % (Auto) [place] % (Auto) Eos % (Auto) Baso % (Auto) Neut # (Auto) Lymph # (Auto) [place] # (Auto) Eos # (Auto) Baso # (Auto) Neutrophils % (Manual) Band Neutrophils % Lymphocytes % (Manual) Monocytes % (Manual) Platelet Estimate D-Dimer, Quantitative Sodium Potassium Chloride Carbon Dioxide Anion Gap BUN Creatinine Est GFR ( Amer) Est GFR (Non-Af Amer) Random Glucose Calcium Phosphorus Magnesium Total Bilirubin AST ALT Alkaline Phosphatase Total Protein Albumin Globulin Albumin/Globulin Ratio Urine Opiates Screen Urine Methadone Screen Ur Barbiturates Screen Ur Phencyclidine Scrn Ur Amphetamines Screen U Benzodiazepines Scrn U Oth Cocaine Metabols U Cannabinoids Screen HIV 1&2 Antibody Screen Negative Influenza Typ A,B (EIA) Ur L.pneumophila Ag
[2018-11-04 13:36] LABS: N MENINGITIS ACY/W135 NOT REQUIRED (NEGATIVE); N MENINGITIS B/ECOLI K1 NOT REQUIRED (NEGATIVE); STREP PNEUMONIAE NEGATIVE (NEGATIVE); STREPTOCOCCUS B NOT REQUIRED (NEGATIVE)
[2018-11-04] MEDS ORDERED: Ipratropium 0.02% Inhal Soln (0.5 mg/2.5 ml) UD IH SCH (14:00)
--- NOTE | 2018-11-04 14:27 | CP.PCM.PN ---
Subjective - Date & Time of Evaluation Date of Evaluation: 11/04/18 Time of Evaluation: 09:00 - Subjective Subjective: PGY1 Medicine progress note for Dr. Hernandez Pt was seen and examined at bedside. He is no longer short of breath, although he does endorse coughing productive of brown sputum. Pt denies fever, chills, chest pain, dyspnea, abdominal pain, n/v/d, leg swelling or pain. Objective - Vital Signs/Intake and Output Vital Signs (last 24 hours): Temp Pulse Resp BP Pulse Ox 97.6 F 110 H 20 119/69 95 11/04/18 08:00 11/04/18 13:00 11/04/18 09:38 11/04/18 08:00 11/04/18 13:00 - Medications Medications: Current Medications Benzonatate (Tessalon Perles) 100 mg PO TID [facility] Last Admin: 11/04/18 13:37 Dose: 100 mg Fluticasone/Vilanterol (Breo Ellipta 100-25 Mcg Inh) 1 puff INH RQD [facility] Last Admin: 11/04/18 07:20 Dose: 1 puff Guaifenesin (Mucinex La) 600 mg PO BID [facility] Last Admin: 11/04/18 09:15 Dose: 600 mg Heparin Sodium (Porcine) (Heparin) 5,000 units SC Q12 [facility] Last Admin: 11/04/18 09:15 Dose: 5,000 units Ipratropium Boyds (Atrovent) 0.5 mg IH RQ6 [facility] Last Admin: 11/04/18 13:00 Dose: 0.5 mg Loratadine (Claritin) 10 mg PO DAILY [facility] Last Admin: 11/04/18 09:15 Dose: 10 mg Methylprednisolone (Solu-Medrol) 40 mg IVP Q12 [facility] Montelukast Sodium (Singulair) 10 mg PO HS [facility] Last Admin: 11/03/18 21:31 Dose: 10 mg - Labs Labs: 11/04/18 07:00 11/04/18 07:00 - Additional Findings Additional findings: - Constitutional Appears: Non-toxic, No Acute Distress - Head Exam Head Exam: ATRAUMATIC, NORMAL INSPECTION - Eye Exam Eye Exam: EOMI, Normal appearance, PERRL - ENT Exam ENT Exam: Mucous Membranes Moist. absent: Normal Oropharynx (erythema, questionable exudate in the right posterior pharynx) Additional comments: (+) post op changes to bilateral ear canals, healed, no signs of infection - Neck Exam Neck exam: Positive for: Normal Inspection. Negative for: Lymphadenopathy - Respiratory Exam Respiratory Exam: CTA bilaterally. absent: Accessory Muscle Use, Decreased Breath Sounds, wheezes, Rales, Rhonchi, Respiratory Distress, Stridor - Cardiovascular Exam Cardiovascular Exam: Tachycardia, +S1, +S2. absent: Diastolic murmur, JVD, Systolic Murmur - GI/Abdominal Exam GI & Abdominal Exam: Normal Bowel Sounds, Soft. absent: Distended, Firm, Guarding, Rebound, Rigid, Tenderness - Extremities Exam Extremities exam: Positive for: normal capillary refill, pedal edema (trace edema bilaterally, left worse than right), pedal pulses present. Negative for: calf tenderness, tenderness - Back Exam Back exam: NORMAL INSPECTION - Neurological Exam Neurological exam: Alert, Oriented x3 - Psychiatric Exam Psychiatric exam: Normal Affect, Normal Mood - Skin Skin Exam: Dry, Normal Color, Warm
--- NOTE | 2018-11-04 14:30 | CP.PCM.DIS ---
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 Time Spent in preparation of Discharge (in minutes): 35 Hospital Course - Lab Results Lab Results: Most Recent Lab Values WBC 18.2 K/uL (4.8-10.8) H 11/04/18 07:00 RBC 4.80 Mil/uL (4.40-5.90) 11/04/18 07:00 Hgb 14.4 g/dL (12.0-18.0) 11/04/18 07:00 Hct 43.5 % (35.0-51.0) 11/04/18 07:00 MCV 90.7 fL (80.0-94.0) 11/04/18 07:00 MCH 29.9 pg (27.0-31.0) 11/04/18 07:00 MCHC 33.0 g/dL (33.0-37.0) 11/04/18 07:00 RDW 13.1 % (11.5-14.5) 11/04/18 07:00 Plt Count 352 K/uL (130-400) 11/04/18 07:00 MPV 7.5 fL (7.2-11.7) 11/04/18 07:00 Neut % (Auto) 88.5 % (50.0-75.0) H 11/04/18 07:00 Lymph % (Auto) 7.3 % (20.0-40.0) L 11/04/18 07:00 [place] % (Auto) 4.2 % (0.0-10.0) 11/04/18 07:00 Eos % (Auto) 0.0 % (0.0-4.0) 11/04/18 07:00 Baso % (Auto) 0.0 % (0.0-2.0) 11/04/18 07:00 Neut # (Auto) 16.0 K/uL (1.8-7.0) H 11/04/18 07:00 Lymph # (Auto) 1.3 K/uL (1.0-4.3) 11/04/18 07:00 [place] # (Auto) 0.8 K/uL (0.0-0.8) 11/04/18 07:00 Eos # (Auto) 0.0 K/uL (0.0-0.7) 11/04/18 07:00 Baso # (Auto) 0.0 K/uL (0.0-0.2) 11/04/18 07:00 Neutrophils % (Manual) 87 % (50-75) H 11/04/18 07:00 Band Neutrophils % 2 % (0-2) 11/04/18 07:00 Lymphocytes % (Manual) 8 % (20-40) L 11/04/18 07:00 Monocytes % (Manual) 3 % (0-10) 11/04/18 07:00 Platelet Estimate Normal (NORMAL) 11/04/18 07:00 D-Dimer, Quantitative 327 ng/mlDDU (0-243) H 11/03/18 18:15 Sodium 137 mmol/L (132-148) 11/04/18 07:00 Potassium 4.6 mmol/L (3.6-5.2) 11/04/18 07:00 Chloride 101 mmol/L (98-107) 11/04/18 07:00 Carbon Dioxide 26 mmol/L (22-30) 11/04/18 07:00 Anion Gap 14 (10-20) 11/04/18 07:00 BUN 17 mg/dL (9-20) 11/04/18 07:00 Creatinine 0.7 mg/dL (0.8-1.5) L 11/04/18 07:00 Est GFR ( Amer) > 60 11/04/18 07:00 Est GFR (Non-Af Amer) > 60 11/04/18 07:00 Random Glucose 157 mg/dL (75-110) H 11/04/18 07:00 Calcium 9.5 mg/dl (8.6-10.4) 11/04/18 07:00 Phosphorus 4.4 mg/dL (2.5-4.5) 11/04/18 07:00 Magnesium 2.5 mg/dL (1.6-2.3) H 11/04/18 07:00 Total Bilirubin 0.8 mg/dL (0.2-1.3) 11/04/18 07:00 AST 29 U/L (17-59) 11/04/18 07:00 ALT 26 U/L (21-72) 11/04/18 07:00 Alkaline Phosphatase 88 U/L (38-126) 11/04/18 07:00 Total Protein 7.1 g/dL (6.3-8.3) 11/04/18 07:00 Albumin 4.6 g/dL (3.5-5.0) 11/04/18 07:00 Globulin 2.5 gm/dL (2.2-3.9) 11/04/18 07:00 Albumin/Globulin Ratio 1.8 (1.0-2.1) 11/04/18 07:00 Urine Opiates Screen Negative (NEGATIVE) 11/03/18 20:55 Urine Methadone Screen Negative (NEGATIVE) 11/03/18 20:55 Ur Barbiturates Screen Negative (NEGATIVE) 11/03/18 20:55 Ur Phencyclidine Scrn Negative (NEGATIVE) 11/03/18 20:55 Ur Amphetamines Screen Negative (NEGATIVE) 11/03/18 20:55 U Benzodiazepines Scrn Negative (NEGATIVE) 11/03/18 20:55 U Oth Cocaine Metabols Negative (NEGATIVE) 11/03/18 20:55 U Cannabinoids Screen Negative (NEGATIVE) 11/03/18 20:55 HIV 1&2 Antibody Screen Negative (NEGATIVE) 11/04/18 09:27 Influenza Typ A,B (EIA) Negative for flu a/b (NEGATIVE) 11/03/18 20:55 H.influenzae Type B Ag Not required (NEGATIVE) 11/03/18 20:55 Ur L.pneumophila Ag Negative (NEGATIVE) 11/03/18 20:55 N.meningitidis ACY/W135 Not required (NEGATIVE) 11/03/18 20:55 N.meningi B/E.coli K1 Ag Not required (NEGATIVE) 11/03/18 20:55 Group B Strep Antigen Not required (NEGATIVE) 11/03/18 20:55 S. pneumoniae Antigen Negative (NEGATIVE) 11/03/18 20:55 - Hospital Course Hospital Course: On admission: This is a 48 year old male with PMH of pneumonia, post-pneumonia asthma who presents with difficulty breathing and wheezing worsening over the past 4 days. He states that he was unable to walk to the bathroom from his bedroom without becoming short of breath yesterday. In the morning his difficultly breathing exacerbated which prompted him to be admitted to the ED. He notes constant wheezing during the episode but denies pleuritic chest pain, or diaphoresis. He used his nebulizer 5 times yesterday without much relief. Symptoms are worse at night, but occur during the day as well. He denies fever, chills, chest pain, headache, dizziness, numbness or tingling, abdominal pain, n/v/d, rash. He endorses leg swelling that has been going on for more than 1 year, and is worse at night. He attributes the swelling to wearing tight socks. His first episode of similar symptoms was in June 2018 where he was coughing up clear sputum profusely while working in [employer]. he was admitte dto the hospital and stayed for one night due to "double pneumonia." He was discharged with antibiotics, name unknown, and completed treatment. His second episode was seen in [place] (he lives in [place]) 3 weeks ago for the same symptoms, which improved with nebulizers in the ER. Pt reports it was very cold when the symptoms began. At that time he received a chest CTA due to his frequent travel history, but pt states it was negative for a PE. He was discharged from the ED with a nebulizer and prednisone. Pt has never seen a cardiology clinical consultant or worked up for asthma in the past, only ER visits for sob. Pt was seen in the ED earlier this morning, but left AMA due to air bnb problem. He returned for further workup, labs are from prior visit this morning. Hospital course: CXR shows no acute cardiopulmonary disease. EKG shows ST, no acute STTW changes. Pt received multiple duoneb treatments, tessalon perles, magnesium sulfate 2g IVPB, terbutaline 0.5 mg SC x2 in the ED. He was put on high flow o2 as well. Leukocytosis was noted, possibly caused by outpatient CCS treatment.Pt afebrile, no left shift, tachycardic at 120s. Eosinophil auto and percentage are elevated, possibly allergic component. Ddimer was elevated. Chest CTA was negative for PE but noted 2 pulmonary nodules, 4.4 mm and 2.5 mm. Started on nebulizer treatment, Montelukast 10 mg PO QHS, Breo daily, Claritin 10 mg PO daily, IV steroids, Benzonatate. I was called to see the pt because he wants to handle personal business and leave the hospital to move his truck. He reports that he feels better. He was informed that our workup is not complete, but he is adamant to leave the hospital. I informed him of the 2 small pulmonary nodules noted on Chest CT, and he indicated that he will follow up. He reports he has a cardiology clinical consultant appointment on 11/10/18. I informed him of the risks of leaving the hospital without proper work up and treatment, including but not limited to respiratory distress, cardiopulmonary arrest, . I provided him with prescriptions for Singulair, Breo, Claritin, Albuterol pump. I also informed him that he should go to the nearest emergency department for evaluation should he develop fever, chills, chest pain, sob, lightheadedness. He relays understands and capacity to make medical decisions. This is a summary of the hospital course, please see EMR for full details. Discharge Plan - Discharge Medications Prescriptions: RX: Albuterol HFA [Ventolin HFA 90 mcg/actuation (8 g)] 0.09 mg IH Q4 PRN #1 inhaler PRN Reason: Wheezing RX: Fluticasone/Vilanterol 100/25 [Breo Ellipta 100-25 MCG INH] 1 puff INH RQD #1 inhaler RX: Loratadine [Claritin] 10 mg PO DAILY #30 tab RX: Montelukast [Singulair] 10 mg PO HS #30 tab - Follow Up Plan Condition: GUARDED Disposition: AGAINST MEDICAL ADVICE Instructions: Asthma, Adult (DC) Referrals: Andrea Lui MD [Staff Provider] - <Uma Hernandez V - Last Filed: 11/04/18 23:47> Provider - Provider Date of Admission: 11/03/18 15:48 Attending physician: Uma Hernandez DO Consults: 11/03/18 15:31 Physician Consult Stat Comment: *already called Consulting Provider: Andrea Lui Consulting Physician: Andrea Lui Reason for Consult: ASTHMA EXAC 11/04/18 09:08 Case Management Referral Routine Comment: Physician Instructions: Reason For Exam: insurance-->patient reports he has [employer]na 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 Diagnosis - Discharge Diagnosis (1) Left against medical advice Status: Acute (2) Exacerbation of asthma Status: Acute Hospital Course - Lab Results Lab Results: Most Recent Lab Values WBC 18.2 K/uL (4.8-10.8) H 11/04/18 07:00 RBC 4.80 Mil/uL (4.40-5.90) 11/04/18 07:00 Hgb 14.4 g/dL (12.0-18.0) 11/04/18 07:00 Hct 43.5 % (35.0-51.0) 11/04/18 07:00 MCV 90.7 fL (80.0-94.0) 11/04/18 07:00 MCH 29.9 pg (27.0-31.0) 11/04/18 07:00 MCHC 33.0 g/dL (33.0-37.0) 11/04/18 07:00 RDW 13.1 % (11.5-14.5) 11/04/18 07:00 Plt Count 352 K/uL (130-400) 11/04/18 07:00 MPV 7.5 fL (7.2-11.7) 11/04/18 07:00 Neut % (Auto) 88.5 % (50.0-75.0) H 11/04/18 07:00 Lymph % (Auto) 7.3 % (20.0-40.0) L 11/04/18 07:00 [place] % (Auto) 4.2 % (0.0-10.0) 11/04/18 07:00 Eos % (Auto) 0.0 % (0.0-4.0) 11/04/18 07:00 Baso % (Auto) 0.0 % (0.0-2.0) 11/04/18 07:00 Neut # (Auto) 16.0 K/uL (1.8-7.0) H 11/04/18 07:00 Lymph # (Auto) 1.3 K/uL (1.0-4.3) 11/04/18 07:00 [place] # (Auto) 0.8 K/uL (0.0-0.8) 11/04/18 07:00 Eos # (Auto) 0.0 K/uL (0.0-0.7) 11/04/18 07:00 Baso # (Auto) 0.0 K/uL (0.0-0.2) 11/04/18 07:00 Neutrophils % (Manual) 87 % (50-75) H 11/04/18 07:00 Band Neutrophils % 2 % (0-2) 11/04/18 07:00 Lymphocytes % (Manual) 8 % (20-40) L 11/04/18 07:00 Monocytes % (Manual) 3 % (0-10) 11/04/18 07:00 Platelet Estimate Normal (NORMAL) 11/04/18 07:00 D-Dimer, Quantitative 327 ng/mlDDU (0-243) H 11/03/18 18:15 Sodium 137 mmol/L (132-148) 11/04/18 07:00 Potassium 4.6 mmol/L (3.6-5.2) 11/04/18 07:00 Chloride 101 mmol/L (98-107) 11/04/18 07:00 Carbon Dioxide 26 mmol/L (22-30) 11/04/18 07:00 Anion Gap 14 (10-20) 11/04/18 07:00 BUN 17 mg/dL (9-20) 11/04/18 07:00 Creatinine 0.7 mg/dL (0.8-1.5) L 11/04/18 07:00 Est GFR ( Amer) > 60 11/04/18 07:00 Est GFR (Non-Af Amer) > 60 11/04/18 07:00 Random Glucose 157 mg/dL (75-110) H 11/04/18 07:00 Calcium 9.5 mg/dl (8.6-10.4) 11/04/18 07:00 Phosphorus 4.4 mg/dL (2.5-4.5) 11/04/18 07:00 Magnesium 2.5 mg/dL (1.6-2.3) H 11/04/18 07:00 Total Bilirubin 0.8 mg/dL (0.2-1.3) 11/04/18 07:00 AST 29 U/L (17-59) 11/04/18 07:00 ALT 26 U/L (21-72) 11/04/18 07:00 Alkaline Phosphatase 88 U/L (38-126) 11/04/18 07:00 Total Protein 7.1 g/dL (6.3-8.3) 11/04/18 07:00 Albumin 4.6 g/dL (3.5-5.0) 11/04/18 07:00 Globulin 2.5 gm/dL (2.2-3.9) 11/04/18 07:00 Albumin/Globulin Ratio 1.8 (1.0-2.1) 11/04/18 07:00 Urine Opiates Screen Negative (NEGATIVE) 11/03/18 20:55 Urine Methadone Screen Negative (NEGATIVE) 11/03/18 20:55 Ur Barbiturates Screen Negative (NEGATIVE) 11/03/18 20:55 Ur Phencyclidine Scrn Negative (NEGATIVE) 11/03/18 20:55 Ur Amphetamines Screen Negative (NEGATIVE) 11/03/18 20:55 U Benzodiazepines Scrn Negative (NEGATIVE) 11/03/18 20:55 U Oth Cocaine Metabols Negative (NEGATIVE) 11/03/18 20:55 U Cannabinoids Screen Negative (NEGATIVE) 11/03/18 20:55 HIV 1&2 Antibody Screen Negative (NEGATIVE) 11/04/18 09:27 Influenza Typ A,B (EIA) Negative for flu a/b (NEGATIVE) 11/03/18 20:55 H.influenzae Type B Ag Not required (NEGATIVE) 11/03/18 20:55 Ur L.pneumophila Ag Negative (NEGATIVE) 11/03/18 20:55 N.meningitidis ACY/W135 Not required (NEGATIVE) 11/03/18 20:55 N.meningi B/E.coli K1 Ag Not required (NEGATIVE) 11/03/18 20:55 Grp A Beta Strep Ag Negative (NEGATIVE) 11/04/18 14:15 Group B Strep Antigen Not required (NEGATIVE) 11/03/18 20:55 S. pneumoniae Antigen Negative (NEGATIVE) 11/03/18 20:55 Discharge Exam - Head Exam Head Exam: NORMAL INSPECTION - Eye Exam Eye Exam: EOMI - ENT Exam ENT Exam: Mucous Membranes Dry - Respiratory Exam Respiratory Exam: Decreased Breath Sounds, NORMAL BREATHING PATTERN. absent: Chest Wall Tenderness, Rales, Rhonchi, Respiratory Distress - Cardiovascular Exam Cardiovascular Exam: Tachycardia, +S1, +S2 - GI/Abdominal Exam GI & Abdominal Exam: Normal Bowel Sounds, Soft. absent: Distended, Firm, Guarding, Rebound, Rigid, Tenderness - Extremities Exam Extremities exam: pedal pulses present - Neurological Exam Neurological exam: Alert, Oriented x3 - Psychiatric Exam Psychiatric exam: Agitated - Skin Skin Exam: Dry, Normal Color, Warm Attending/Attestation - Attestation I have personally seen and examined this patient.: Yes I have fully participated in the care of the patient.: Yes I have reviewed all pertinent clinical information, including history, physical exam and plan: Yes Notes (Text): Patient seen, examined, case discussed with medical director of hospice. Patient seen this morning with pulmonary. Patient point breathing is much better. Patient currently on IV steroids. Patient order for peak flow requires to still remain hospitalized given that asthma is mildly improved but still needs requiring IV steroids. Patient understands he is not medically stable to leave the hospital today I was informed by patient's nurse Chitra that patient has a number of social stressors that he wishes to leave the hospital AGAINST MEDICAL ADVICE. We also note that he was asking for permission to move his truck.. However patient is not medically stable to go outside given it is quite cold and he is admitted for asthma exacerbation. This was also brought to both nursing extension supervisor as well as patient patient care technician. Patient care corporate sales representative did speak with the patient to find if there is an alternative to removing his truck however patient declined. Patient also noted that he was just lost his current contract for his job and he reports that he needs to get back to his job. I did instruct him that he is medically not stable yet to goal and pursue his job level vigorous exercise which was another question he asked. Given that his peak flow was quite low about 200. Patient also noted that she is a her BMD Mani was threatening to remove his staff and has made him pay triple the landa. And could not find the phone number to contact and Airbnb I did provide the phone number [employer] search to give to patient to report his social stressor to see if therapy we could help participate on his behalf to secure his items and additional money is that he had to pay as well to try to offset stressor for him. Patient is left AGAINST MEDICAL ADVICE in spite of risks and benefits described by both the resident myself in the presence of his primary care nurse and patient care corporate sales representative. Patient is awake alert oriented x3. Patient is fully aware of the risks involved including but not limited to cardiac arrest pulmonary arrest and ultimately . Patient reports he did make an appointment with a cardiology clinical consultant as an outpatient. Patient also noted he needs to speak with his insurance given that there is Ms. information regards to his current data demographic data with current insurance company. Ultimately patient was encouraged if there is any change in his status if he does not feel well and feels feels pretty is not improved. If he has any other abnormal symptoms to come back and be evaluated immediately. Which she reports he understands. Patient provided prescriptions for at least albuterol rescue inhaler, Brio Ellipta, Claritin, Singulair. However unable to provide steroid for patient given that he still requires IV steroids during his current hospitalization. Patient was also aware of CT angios finding noted for small pulmonary nodules that will need to be monitored as outpatient. Patient was also pending venous leg Doppler which she did not complete because of he wants to leave AGAINST MEDICAL ADVICE given an elevated d-dimer, with known history of travel and tachycardia. Discharge diagnoses 1)left AGAINST MEDICAL ADVICE 2) asthma exacerbation, 3) Dyspnea elevated d-dimer 4) tachycardia 5) pulmonary nodule
[2018-11-04] MEDS ORDERED: MethylPREDNISolone 40 mg Vial IVP SCH (22:00)
--- NOTE | 2018-11-06 18:41 | VASCLAB ---
Date of service: 11/04/2018 PROCEDURE: Lower Extremity Venous Duplex Exam. HISTORY: Lower extremity edema, SOB/wheezing PRIORS: None. TECHNIQUE: Bilateral common femoral, femoral, popliteal and posterior tibial, peroneal and great saphenous veins were evaluated. Flow was assessed with color Doppler, compressibility, assessment of phasic flow and augmentation response. Report prepared by ANJANA Pearl FINDINGS: RIGHT: 1. Common Femoral Vein: 1.1. Compressibility - Fully compressible: Thrombus - None : Flow - Phasic: Augmentation -Normal: Reflux - None. 2. Femoral Vein: 2.1. Compressibility - Fully compressible: Thrombus - None : Flow - Phasic: Augmentation -Normal: Reflux - None. 3. Popliteal Vein: 3.1. Compressibility - Fully compressible: Thrombus - None : Flow - Phasic: Augmentation -Normal: Reflux - None. 4. Posterior Tibial Vein: 4.1. Compressibility - Fully compressible: Thrombus - None: Flow - Phasic: Augmentation -Normal: Reflux - None. 5. Peroneal Vein: 5.1. Compressibility - Fully compressible: Thrombus - None: Flow - Phasic: Augmentation -Normal: Reflux - None. 6. Great Saphenous Vein: 6.1. Compressibility - Fully compressible: Thrombus - None: Flow - Phasic: Augmentation - Normal: Reflux - None. LEFT: 1. Common Femoral Vein: 1.1. Compressibility - Fully compressible: Thrombus - None: Flow - Phasic: Augmentation -Normal: Reflux - None. 2. Femoral Vein: 2.1. Compressibility - Fully compressible: Thrombus - None: Flow - Phasic: Augmentation -Normal: Reflux - None. 3. Popliteal Vein: 3.1. Compressibility - Fully compressible: Thrombus - None : Flow - Phasic: Augmentation -Normal: Reflux - None. 4. Posterior Tibial Vein: 4.1. Compressibility - Fully compressible: Thrombus - None: Flow - Phasic: Augmentation -Normal: Reflux - None. 5. Peroneal Vein: 5.1. Compressibility - Fully compressible: Thrombus - None: Flow - Phasic: Augmentation -Normal: Reflux - None. 6. Great Saphenous Vein: 6.1. Compressibility - Fully compressible: Thrombus - None: Flow - Phasic: Augmentation - Normal: Reflux - None. OTHER FINDINGS: Right: None significant. Left: None significant. IMPRESSION: Right: No evidence of deep or superficial vein thrombosis of the right lower extremity. Normal valve function noted of the right side. Left: No evidence of deep or superficial vein thrombosis of the left lower extremity. Normal valve function noted of the left side.
== END 2018-11-04 14:30 | disposition left against medical advice (07) | DRG 203 ==
LOC: C.ER 14:49 → C.9E 15:48 → C.5S 20:01
PROVIDERS: ADMIT Hospitalist; ATTEND Hospitalist
DX: J45.901 Unspecified asthma with (acute) exacerbation (principal); Z87.01 Personal history of pneumonia (recurrent); R00.0 Tachycardia, unspecified; M79.89 Other specified soft tissue disorders